=== PATIENT | male | born 1990 ===

== ENCOUNTER 2016-12-28 05:22 | Emergency (ER) | payer OTHER ==
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
--- NOTE | 2016-12-28 06:12 | ED NURSING NOTES ---
Clinical Report - Nurses [facility] [address] [place] [address] 12/28/2016 5:23 Patient: KHADIJAH LEE TRIAGE Triage time 05:30. Acuity: LEVEL 4. Chief Complaint: NAUSEA and VOMITING (Feeling jittery, caffine OD). 05:39. Alert. SEPSIS SCREEN: Sepsis Screen. Negative (no infection suspected/documented). KARI COMA SCORE: Kari Coma Scale: 15- eyes open spontaneously (4); best verbal response- oriented x 4 (5); best motor response- obeys commands (6). --05:39 Moose Menjivar R.N. 05:30 12/28/16. BP: 154/93. HR: 81. RR: 16. O2 saturation: 100% on room air. Temp: 98 F. Pain level now: 04/03. --05:39 Moose Menjivar R.N. Weight: 112.9 kg stated. Height/Length: 70 inches Per Patient. BMI: 35.7. --05:35 Moose Menjivar R.N. Medications Amoxicillin Oral, 3 x daily (pt unsure of dose). --05:32 Moose Menjivar R.N. Albuterol Sulfate Inhalation 2 puffs, PRN. --05:34 Moose Menjivar R.N. Medication/allergy information source: the patient. --05:39 Moose Menjivar R.N. Allergies No Known Drug Allergy. --05:33 Moose Menjivar R.N. History Arrived by private vehicle. Historian: patient. Accompanied by family. Primary physician (Noah). Onset. (about 0300). ( Patient reports drinking a pre-workout drink mix (Haymaker) 4 scoops along with a cup of coffee and a zip fizz about 0000 then started feeling jittery about 0230- 0300). 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 PAST MEDICAL HX: Immunizations: up-to-date. SOCIAL HX: Former smoker, end date 2015. History of drug use: marijuana. (daily). No alcohol use. No infectious disease exposure. ABUSE ASSESSMENT: No report of abuse. FALL RISK ASSESSMENT: Fall risk assessment completed. No fall risk identified. NUTRITIONAL RISK ASSESSMENT: The nutritional risk assessment revealed no deficiencies. FUNCTIONAL ASSESSMENT: Functional assessment: no impairments noted. LEARNING NEEDS ASSESSMENT: The learning needs assessment revealed no barriers. SKIN INTEGRITY ASSESSMENT: Skin integrity risk assessment completed. No skin integrity risk identified. --05:39 Moose Menjivar R.N. PROBLEMS: Asthma. Obesity. Hypertension. --05:34 Moose Menjivar R.N. ADDITIONAL SURGERIES: Dental Surgery. --05:34 Moose Menjivar R.N. Interventions ID band on patient. To treatment room. --05:39 Moose Menjivar R.N. PHYSICAL ASSESSMENT 05:29. Ambulatory to room. GENERAL / NEURO / PSYCH: Alert. Oriented X 4. HEENT: No facial asymmetry noted. Mucous membranes are pink. RESPIRATORY: Respirations not labored. SKIN: Skin intact. Skin is warm and dry. Normal skin turgor. --05:29 Moose Menjivar R.N. NURSING PROGRESS NOTES 05:29. Head of bed elevated. Two patient identifiers checked. Call light placed in reach. Bed placed in lowest position. Brakes of bed on. Patient ready for evaluation- chart flagged. --05:30 Moose Menjivar R.N. 06:10 12/28/2016 Ativan (LORazepam) PO 1 mg given. Allergies verified, confirmed 5 rights and sedative warning given to the patient and patient's family. --06:11 Moose Menjivar R.N. EKG time: (0616 AM). EKG was ordered, performed by a tech and shown to the ED physician. --06:17 Deepti Juarez 06:18. The patient is calm and resting quietly. RESPIRATORY: No respiratory distress. SKIN: Skin is warm and dry. Skin color within normal limits. --06:28 Moose Menjivar R.N. DISPOSITION / DISCHARGE Departure time: 06:20. Condition at departure: stable. No learning barriers present. Discharge instructions provided and reviewed with the patient and parent. Patient and parent verbalized understanding. Written instructions provided in Greenlandic. The patient was discharged home and accompanied by parent. He left the Emergency Department via private vehicle. Parent driving. FALL RISK ASSESSMENT: Fall risk assessment completed. No fall risk identified. --06:28 Moose Menjivar R.N. 06:15 12/28/16. BP: 151/78. HR: 82. RR: 16. O2 saturation: 100%. Pain level now: 03/04. --06:28 Moose Menjivar R.N. Locked/Released at 12/28/2016 6:29 by Moose Menjivar R.N.
--- NOTE | 2016-12-28 06:12 | ED ORDER SUMMARY ---
..... Patient: KHADIJAH LEE OrderSheet VisitID: [id number] [address] [place] [address] 26y, M Registration Date/Time: 12/28/2016 ORDER SHEET Weight: 112.9 kg (stated) Allergies: No Known Drug Allergy GENERAL ORDERS: EKG - ER Stat (06:12/28/2016 Mundo GOMEZ) (6:16 CHategekimana) MEDICATION ORDERS: Ativan PO 1 mg (HIGH ALERT MEDICATION, NOW) (06:05 12/28/2016 Mundo GOMEZ) (Ack 6:07 JQuivey R.N.) (6:11 Corinna R.N.) IV FLUIDS: ORDER SHEET NOTES: [Electronically signed by Moose Menjivar R.N. (06:29 12/28/2016)] [Electronically signed by Ina Medina MD (19:06 01/06/2017)] [Electronically locked/signed by Moose Menjivar R.N. (06:29 12/28/2016)]
--- NOTE | 2016-12-28 06:12 | ED NURSING NOTES ---
Clinical Report - Nurses [facility] [address] [place] [address] 12/28/2016 5:23 Patient: KHADIJAH LEE TRIAGE Triage time 05:30. Acuity: LEVEL 4. Chief Complaint: NAUSEA and VOMITING (Feeling jittery, caffine OD). 05:39. Alert. SEPSIS SCREEN: Sepsis Screen. Negative (no infection suspected/documented). KARI COMA SCORE: Kari Coma Scale: 15- eyes open spontaneously (4); best verbal response- oriented x 4 (5); best motor response- obeys commands (6). --05:39 Moose Menjivar R.N. 05:30 12/28/16. BP: 154/93. HR: 81. RR: 16. O2 saturation: 100% on room air. Temp: 98 F. Pain level now: 04/03. --05:39 Moose Menjivar R.N. Weight: 112.9 kg stated. Height/Length: 70 inches Per Patient. BMI: 35.7. --05:35 Moose Menjivar R.N. Medications Amoxicillin Oral, 3 x daily (pt unsure of dose). --05:32 Moose Menjivar R.N. Albuterol Sulfate Inhalation 2 puffs, PRN. --05:34 Moose Menjivar R.N. Medication/allergy information source: the patient. --05:39 Moose Menjivar R.N. Allergies No Known Drug Allergy. --05:33 Moose Menjivar R.N. History Arrived by private vehicle. Historian: patient. Accompanied by family. Primary physician (Noah). Onset. (about 0300). ( Patient reports drinking a pre-workout drink mix (Haymaker) 4 scoops along with a cup of coffee and a zip fizz about 0000 then started feeling jittery about 0230- 0300). 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 PAST MEDICAL HX: Immunizations: up-to-date. SOCIAL HX: Former smoker, end date 2015. History of drug use: marijuana. (daily). No alcohol use. No infectious disease exposure. ABUSE ASSESSMENT: No report of abuse. FALL RISK ASSESSMENT: Fall risk assessment completed. No fall risk identified. NUTRITIONAL RISK ASSESSMENT: The nutritional risk assessment revealed no deficiencies. FUNCTIONAL ASSESSMENT: Functional assessment: no impairments noted. LEARNING NEEDS ASSESSMENT: The learning needs assessment revealed no barriers. SKIN INTEGRITY ASSESSMENT: Skin integrity risk assessment completed. No skin integrity risk identified. --05:39 Moose Menjivar R.N. PROBLEMS: Asthma. Obesity. Hypertension. --05:34 Moose Menjivar R.N. ADDITIONAL SURGERIES: Dental Surgery. --05:34 Moose Menjivar R.N. Interventions ID band on patient. To treatment room. --05:39 Moose Menjivar R.N. PHYSICAL ASSESSMENT 05:29. Ambulatory to room. GENERAL / NEURO / PSYCH: Alert. Oriented X 4. HEENT: No facial asymmetry noted. Mucous membranes are pink. RESPIRATORY: Respirations not labored. SKIN: Skin intact. Skin is warm and dry. Normal skin turgor. --05:29 Moose Menjivar R.N. NURSING PROGRESS NOTES 05:29. Head of bed elevated. Two patient identifiers checked. Call light placed in reach. Bed placed in lowest position. Brakes of bed on. Patient ready for evaluation- chart flagged. --05:30 Moose Menjivar R.N. 06:10 12/28/2016 Ativan (LORazepam) PO 1 mg given. Allergies verified, confirmed 5 rights and sedative warning given to the patient and patient's family. --06:11 Moose Menjivar R.N. EKG time: (0616 AM). EKG was ordered, performed by a tech and shown to the ED physician. --06:17 Deepti Juarez 06:18. The patient is calm and resting quietly. RESPIRATORY: No respiratory distress. SKIN: Skin is warm and dry. Skin color within normal limits. --06:28 Moose Menjivar R.N. DISPOSITION / DISCHARGE Departure time: 06:20. Condition at departure: stable. No learning barriers present. Discharge instructions provided and reviewed with the patient and parent. Patient and parent verbalized understanding. Written instructions provided in Tajik. The patient was discharged home and accompanied by parent. He left the Emergency Department via private vehicle. Parent driving. FALL RISK ASSESSMENT: Fall risk assessment completed. No fall risk identified. --06:28 Moose Menjivar R.N. 06:15 12/28/16. BP: 151/78. HR: 82. RR: 16. O2 saturation: 100%. Pain level now: 03/04. --06:28 Moose Menjivar R.N. Locked/Released at 12/28/2016 6:29 by Moose Menjivar R.N.
--- NOTE | 2016-12-28 06:12 | ED ORDER SUMMARY ---
..... Patient: KHADIJAH LEE OrderSheet [facility] VisitID: [id number] [address] [place] [address] 26y, M Registration Date/Time: 12/28/2016 ORDER SHEET Weight: 112.9 kg (stated) Allergies: No Known Drug Allergy GENERAL ORDERS: EKG - ER Stat (06:12/28/2016 Mundo GOMEZ) (6:16 CHategekimana) MEDICATION ORDERS: Ativan PO 1 mg (HIGH ALERT MEDICATION, NOW) (06:05 12/28/2016 Mundo GOMEZ) (Ack 6:07 JQuivey R.N.) (6:11 Corinna R.N.) IV FLUIDS: ORDER SHEET NOTES: [Electronically signed by Moose Menjivar R.N. (06:29 12/28/2016)] [Electronically signed by Ina Medina MD (19:06 01/06/2017)] [Electronically locked/signed by Moose Menjivar R.N. (06:29 12/28/2016)]
--- NOTE | 2017-01-06 19:06 | ED DISCHARGE INSTRUCTIONS ---
Patient: KHADIJAH LEE General Instructions [facility] VisitID: [id number] [address] [place] [address] 26y, M Registration Date/Time: 12/28/2016 Overdose (caffeine/stimulant). INSTRUCTIONS Do not work today. Warnings: GENERAL WARNINGS: Return or contact your physician immediately if your condition worsens or changes unexpectedly, if not improving as expected, or if other problems arise. Your Current Medications: CONTINUE TAKING THE FOLLOWING MEDICATIONS: Albuterol Sulfate Inhalation : 2 puffs PRN. Amoxicillin Oral : 3 x daily, pt unsure of dose. Follow-up: Follow up with your doctor. Call for the next available appointment. Reason for referral: Discuss insomnia. Understanding of the discharge instructions verbalized by patient. ADDITIONAL INFORMATION Accidental Ingestion:Non-Toxic [Adult] You have been evaluated and treated for taking too much of a medicine or swallowing a chemical product. There is no sign of toxic effect at this time. It is very unlikely that any new symptoms will appear. As a safeguard, you must be alert for symptoms during the next 24 hours (see below). The exact symptom will depend on what was swallowed. Home Care: If LIQUID CHARCOAL was given to neutralize what was swallowed, it will cause a black color to the stools for 1-2 days. Usually, a laxative (sorbitol) is given with charcoal to speed the removal of any toxins from the intestinal tract. This may cause diarrhea for up to 24 hours. If no laxative was given with charcoal, you may get constipated. If this occurs, you may take an euxj-nha-rtcmxia laxative such as Dulcolax pills or suppository. Prevention: Keep medicines, pesticides, and other household chemicals in their original containers. Clearly cristina all harmful products if a different bottle is used. Follow Up with your doctor if all symptoms do not resolve within 24 hours or if constipation is not relieved by one or two doses of laxatives. Get Prompt Medical Attention if any of the following occur: Excess drowsiness or inability to be awakened Rapid heart beat, shakiness or seizure Fast breathing (over 25 breaths/minute) or slow breathing (less than 8 breaths/minute) Feeling shortness of breath Fever of 100.4F (38C) or higher, or as directed by your healthcare provider Vomiting or diarrhea for more than 24 hours Blood in stools or vomit (black or red color) Chest or abdominal pain Dizziness, weakness or fainting You have been given the following additional information: Overdose, Accidental (Adult) Do not work today. (Electronically signed by Ina Medina MD 01/06/2017 19:06)
--- NOTE | 2017-01-06 19:06 | ED MED RECONCILIATION SUMMARY ---
Patient: KHADIJAH LEE Medication Reconciliation Report [facility] VisitID: [id number] [address] [place] [address] 26y, M Registration Date/Time: 12/28/2016 Weight: 112.9 kg Height/Length: 70 in. BMI: 35.7 ALLERGIES: No Known Drug Allergy The patient's Home Medications are listed below: CONTINUE TAKING THE FOLLOWING MEDICATIONS: Albuterol Sulfate Inhalation 2 puffs, PRN Amoxicillin Oral, 3 x daily, pt unsure of dose The source(s) of the original Home Medication information: patient The following Medications were given to the patient in the Emergency Department: Ativan [PO] PO 1 mg, administered: 12/28/2016 6:10:00 AM The following Medications were prescribed to the patient: None.
--- NOTE | 2017-01-06 19:06 | ED MAR SUMMARY ---
..... Medication Administration Record [facility] [address] [place] [address] Patient: KHADIJAH LEE Visit ID: [id number] 26y, M Weight: 112.9 kg Height/Length: 70 in BMI: 35.7 ALLERGIES: No Known Drug Allergy Given 06:10 12/28/2016 Moose Menjivar RJuaquinNJuaquin Medication Administered: ATIVAN [PO] (LORAZEPAM), Dose: 1 mg PO. Medication Ordered: Ativan PO 1 mg (HIGH ALERT MEDICATION, NOW).
--- NOTE | 2017-01-06 19:06 | ED MED RECONCILIATION SUMMARY ---
Patient: KHADIJAH LEE Medication Reconciliation Report [facility] VisitID: [id number] [address] [place] [address] 26y, M Registration Date/Time: 12/28/2016 Weight: 112.9 kg Height/Length: 70 in. BMI: 35.7 ALLERGIES: No Known Drug Allergy The patient's Home Medications are listed below: CONTINUE TAKING THE FOLLOWING MEDICATIONS: Albuterol Sulfate Inhalation 2 puffs, PRN Amoxicillin Oral, 3 x daily, pt unsure of dose The source(s) of the original Home Medication information: patient The following Medications were given to the patient in the Emergency Department: Ativan [PO] PO 1 mg, administered: 12/28/2016 6:10:00 AM The following Medications were prescribed to the patient: None.
--- NOTE | 2017-01-06 19:06 | ED DISCHARGE INSTRUCTIONS ---
Patient: KHADIJAH LEE General Instructions [facility] VisitID: [id number] [place] [address] 26y, M Registration Date/Time: 12/28/2016 Overdose (caffeine/stimulant). INSTRUCTIONS Do not work today. Warnings: GENERAL WARNINGS: Return or contact your physician immediately if your condition worsens or changes unexpectedly, if not improving as expected, or if other problems arise. Your Current Medications: CONTINUE TAKING THE FOLLOWING MEDICATIONS: Albuterol Sulfate Inhalation : 2 puffs PRN. Amoxicillin Oral : 3 x daily, pt unsure of dose. Follow-up: Follow up with your doctor. Call for the next available appointment. Reason for referral: Discuss insomnia. Understanding of the discharge instructions verbalized by patient. ADDITIONAL INFORMATION Accidental Ingestion:Non-Toxic [Adult] You have been evaluated and treated for taking too much of a medicine or swallowing a chemical product. There is no sign of toxic effect at this time. It is very unlikely that any new symptoms will appear. As a safeguard, you must be alert for symptoms during the next 24 hours (see below). The exact symptom will depend on what was swallowed. Home Care: If LIQUID CHARCOAL was given to neutralize what was swallowed, it will cause a black color to the stools for 1-2 days. Usually, a laxative (sorbitol) is given with charcoal to speed the removal of any toxins from the intestinal tract. This may cause diarrhea for up to 24 hours. If no laxative was given with charcoal, you may get constipated. If this occurs, you may take an hwmn-nam-rxlfumd laxative such as Dulcolax pills or suppository. Prevention: Keep medicines, pesticides, and other household chemicals in their original containers. Clearly cristina all harmful products if a different bottle is used. Follow Up with your doctor if all symptoms do not resolve within 24 hours or if constipation is not relieved by one or two doses of laxatives. Get Prompt Medical Attention if any of the following occur: Excess drowsiness or inability to be awakened Rapid heart beat, shakiness or seizure Fast breathing (over 25 breaths/minute) or slow breathing (less than 8 breaths/minute) Feeling shortness of breath Fever of 100.4F (38C) or higher, or as directed by your healthcare provider Vomiting or diarrhea for more than 24 hours Blood in stools or vomit (black or red color) Chest or abdominal pain Dizziness, weakness or fainting You have been given the following additional information: Overdose, Accidental (Adult) Do not work today. (Electronically signed by Ina Medina MD 01/06/2017 19:06)
--- NOTE | 2017-01-06 19:06 | ED MAR SUMMARY ---
..... Medication Administration Record [facility] [address] [place] [address] Patient: KHADIJAH LEE Visit ID: [id number] 26y, M Weight: 112.9 kg Height/Length: 70 in BMI: 35.7 ALLERGIES: No Known Drug Allergy Given 06:10 12/28/2016 Moose Menjivar RJuaquinNJuaquin Medication Administered: ATIVAN [PO] (LORAZEPAM), Dose: 1 mg PO. Medication Ordered: Ativan PO 1 mg (HIGH ALERT MEDICATION, NOW).
== END 2016-12-28 06:20 | disposition home or self-care (01) ==
LOC: ED SRH 05:22
DX: T43.611A Poisoning by caffeine, accidental (unintentional), initial encounter (principal); I10 Essential (primary) hypertension; J45.909 Unspecified asthma, uncomplicated; Z87.891 Personal history of nicotine dependence